=== PATIENT | male | born 1975 | race Caucasian/White ===

== ENCOUNTER 2018-11-11 09:22 | Day surgery (SDC) | payer MEDICARE, OTHER ==
[2018-11-07 12:11] VITALS: BMI 60.0
[~2018-11-11 09:22] MED LIST: LACTATED RINGERS 1,000 ML IV SCH; LIDOCAINE 1% 20 ML VIAL (10MG/ML) FOR IV START INTRADERMA PRN
[2018-11-11 09:54] VITALS: RESP 16; TEMP 97.2
[2018-11-11] MEDS ORDERED: PROPOFOL 10 MG/ML 20 ML VIAL IV ONE (10:41)
[2018-11-11] MEDS ORDERED: LIDOCAINE 1% INJ 10MG/ML (20 ML MDV) ONE (10:41)
[2018-11-11] MEDS ORDERED: SODIUM CHLORIDE 0.9% 500 ML 500 ML IV ONE (11:37)
--- NOTE | 2018-11-11 11:45 | P.PCN ---
Date of Procedure: 11/11/18 Description of Procedure: Brief history: 43-year-old male who is seen for outpatient EGD and colonoscopy. Patient at that time was complaining of long-standing diarrhea which began as an adolescent Raheem progressively gotten worse and continues currently. He also reports a sharp pain across his abdomen. The patient reports several bowel movements daily, averaging approximately 3-4 per day. He has associated urgency and has had episodes of incontinence. He feels very is worse with high sugar foods. No family history of Crohn's disease or colitis. Last colonoscopy was approximately 15 years ago. Procedure performed: Esophagogastroduodenoscopy with biopsy Colonoscopy with polypectomy and biopsy Estimated blood loss: Minimal. Preoperative diagnosis: Anesthesia: MAC Procedure: After informed consent was obtained from the patient was brought into the endoscopy unit and IV sedation was administered by anesthesia under continuous monitoring. Initially upper endoscopy was done. The Olympus GF 190 video endoscope was inserted inserted into the mouth and esophagus intubated without any difficulty and was gradually advanced into the stomach and duodenum and carefully examined. The bulb and second part of the duodenum appeared normal, with biopsies. The scope was then withdrawn into the stomach adequately insufflated with air and upon careful examination the antrum and body, cardia and fundus appeared grossly normal. There was erythema in the antrum and body with focal superficial erosion suggestive of moderate gastritis with biopsies of the antrum and body taken. The scope was then withdrawn into the esophagus. The GE junction was located at 37 cm to the incisors. It appeared regular with no erythema erosions or ulcerations. Rest of the esophagus appeared normal. Patient tolerated the procedure well. At this time the patient continued to remain sedation. Initial digital rectal examination was normal. Olympus CF 190 video colonoscope was then inserted into the rectum and gradually advanced to the cecum without any difficulty. The terminal ileum was intubated, with no ulcerations there did appear to be some tissue hyperplasia with biopsies of the terminal ileum taken. Careful examination was performed as the scope was gradually being withdrawn. The prep was good. The cecum, ascending colon, transverse colon, descending colon, sigmoid colon and rectum appeared grossly normal. 2 diminutive polyps measuring 2 mm and 3 mm respectively removed forcep polypectomy from the transverse colon. One 4 mm sessile descending colon polyp was removed with cold forcep polypectomy. Random biopsies of the left colon were taken to rule out microscopic colitis. Retroflexion was performed in the rectum and no lesions were noted. Patient tolerated the procedure well. Impression: 1. Mild to moderate gastritis of the antrum and body, biopsied. Duodenal biopsies. 2. Cold forcep polypectomy of polyps in the transverse colon and descending colon. Terminal ileum biopsies. Random left colon biopsies. Recommendations: Findings of this examination were discussed with the patient. Okay to resume diet. May benefit from trial of omeprazole 20 mg daily. Await pathology from biopsies. Anticipate repeat colonoscopy in 3-5 years pending pathology from biopsies.
[2018-11-11 12:02] VITALS: BP 151/70; PULSE 77
== END 2018-11-11 12:22 | disposition home or self-care (01) ==
LOC: ORWHC2ENDO 09:22
PROVIDERS: ATTEND Internal Medicine
DX: K29.50 Unspecified chronic gastritis without bleeding (principal); D12.4 Benign neoplasm of descending colon; I10 Essential (primary) hypertension; M19.90 Unspecified osteoarthritis, unspecified site; R62.50 Unspecified lack of expected normal physiological development in childhood; F41.9 Anxiety disorder, unspecified; E66.01 Morbid (severe) obesity due to excess calories; Z68.44 Body mass index [BMI] 60.0-69.9, adult; Z79.899 Other long term (current) drug therapy; Z88.0 Allergy status to penicillin
CPT/HCPCS: 88305; 45380; 43239; J2001; J2704; 45385

== ENCOUNTER → 2024-07-25 | Outpatient (CLI) | payer MEDICARE, OTHER ==
[2024-07-25 13:20] LABS: HCT 44.2 % (39.6-50.0); HGB 14.4 g/dL (13.0-17.0); MCH 28.7 pg (27.0-32.0); MCHC 32.6 g/dL (32.0-37.0); MCV 88.2 FL (80.0-97.0); Mean Platelet Volume 10.4 FL (9.5-12.2); NRBC Per 100 WBC 0 X 10*3/uL (0.00-0.01); Platelet Count 240 X 10*3/uL (140-440); RBC 5.01 X 10*6/uL (4.40-5.60); RDW 13.8 % (11.5-14.5); WBC 7.81 X 10*3/uL (4.50-10.00)
[2024-07-25 13:30] LABS: Microalbumin Creatinine Ratio <11 mg/g Cr (0-30)
[2024-07-25 13:48] LABS: % Iron Saturation 27.08 (15.00-50.00); ALT 22 U/L (10-49); AST 25 U/L (14-35); Albumin 3.8 g/dL (3.8-4.9); Albumin/Globulin Ratio 1.46 Ratio (1.60-3.17); Alkaline Phosphatase 91 U/L (41-126); Blood Urea Nitrogen 18.9 mg/dL (9.0-27.0); Calcium 9.4 mg/dL (8.7-10.3); Carbon Dioxide 28.5 mmol/L (21.6-31.8); Chloride 100 mmol/L (96-109); Globulin 2.6 g/dL (1.6-3.3); Glucose 87 mg/dL (70-110); Iron 91 UG/DL (65-175); Magnesium 1.7 mg/dL (1.5-2.4); Phosphorus 2.3 mg/dL (2.4-5.1); Potassium 3.9 mmol/L (3.5-5.5); Sodium 137 mmol/L (135-145); Total Bilirubin 0.5 mg/dL (0.3-1.2); Total Iron Binding Capacity 336 UG/DL (228-460); Total Protein 6.4 g/dL (6.2-8.2); Uric Acid 6.8 mg/dL (3.7-8.7)
[2024-07-25 15:56] LABS: Appearance,Urine Clear (Clear); Bilirubin,Urine Negative (Negative); Blood,Urine Negative (Negative); Color,Urine Yellow (Yellow); Ketones,Urine Negative (Negative); Nitrite,Urine Negative (Negative); PH, Urine 7.5; Specific Gravity,Urine 1.018 (1.001-1.030)
== END | disposition home or self-care (01) ==
LOC: LABWHC1 09:44
PROVIDERS: ATTEND Internal Medicine Nephrology
DX: E55.9 Vitamin D deficiency, unspecified (principal); N18.2 Chronic kidney disease, stage 2 (mild); D63.1 Anemia in chronic kidney disease; N25.81 Secondary hyperparathyroidism of renal origin; N39.0 Urinary tract infection, site not specified; R80.9 Proteinuria, unspecified
CPT/HCPCS: 36415; 80053; 81003; 82043; 82306; 82570; 82728; 83540; 83550; 83735; 83970; 84100; 84550; 85027